=== PATIENT | female | born 1990 | race Caucasian/White ===

== ENCOUNTER 2024-04-05 12:18 | Emergency (ER) | payer OTHER, SELFPAY ==
[2024-04-05 12:31] VITALS: BP 133/70; PULSE 81; RESP 18; TEMP 36.7; O2SAT 99
--- NOTE | 2024-04-05 12:31 | ED.HA ---
HPI - Headache General Chief Complaint: Headache Stated Complaint: fatigue/migraine Time Seen by Provider: 04/05/24 12:32 Source: patient, RN notes reviewed and old records reviewed Mode of arrival: ambulatory Limitations: no limitations History of Present Illness HPI Narrative: patient presents with complaints of headache for 2 days. She does report that she gets frequent headaches, typically twice a month. She has not tract triggers. She denies any injury or trauma. That she takes ibuprofen, typically this gives her good relief. She states this is her typical headache except for the fact that it is lasting longer than normal. She does have some associated nausea, has not vomited. No fever, no rash. She further reports that she has had some fatigue for a couple of weeks. She just moved to the area, has not established care with a primary care provider yet. Related Data Home Medications Medication Instructions Recorded Confirmed cholecalciferol (vitamin D3) 10 10 mcg PO DAILY 04/05/24 04/05/24 mcg (400 unit) tablet escitalopram oxalate 10 mg tablet mg 04/05/24 levothyroxine 100 mcg tablet mcg 04/05/24 omega-3 fatty acids 1,000 mg PO DAILY 04/05/24 04/05/24 vits no.126-ferrous fum tablet 04/05/24 28 mg iron-folic acid 800 mcg tablet (Classic ) Allergies Allergy/AdvReac Type Severity Reaction Status Date / Time sulfamethoxazole Allergy Rash Verified 04/05/24 12:33 Review of Systems Review of Systems: All systems reviewed & are unremarkable except as noted in HPI and below Constitutional: Constitutional: Reports no additional constitutional complaints, Reports headache(s) and Reports lethargy ENT: Reports system reviewed and no additional complaints, except as documented Cardiovascular: Cardiovascular: Reports no additional cardiovascular complaints Respiratory: Respiratory: Reports no additional respiratory complaints Gastrointestinal: Gastrointestinal: Reports as per HPI, Reports no additional gastrointestinal complaints, Reports nausea and Denies vomiting Neurologic: Denies confusion, Denies dizziness and Reports headache(s) Psychiatric: Psychiatric: Reports anxiety PMFSH Comments At the time of my signature, I reviewed and agree with the nursing past medical, surgical, social, and family history. There is no relevant family history pertinent to the patient complaint. Exam Const: General: cooperative, no acute distress, alert and awake Orientation/consciousness: oriented to person, oriented to place and oriented to time HENMT: Head: normal to inspection Eyes: General: appearance normal, both eyes and all related structures Pupils: Equal, round and reactive pupils present Resp: Effort & Inspection: normal respiratory effort and able to speak in complete sentences Auscultation: clear to auscultation bilaterally, no crackles, no rales, no rhonchi and no wheezes Cardio: Palpation: normal PMI Rate: regular rate Rhythm: regular rhythm Heart sounds: S1 normal heart sound present and S2 normal heart sound present Neuro: General: oriented to person, oriented to place and oriented to time Cranial nerves: Yes CN's II-XII intact bilaterally Psych: Appearance: grossly normal Thought process: Normal thought process present Insight: Good insight present (Psych) Judgement: Good judgement present (Psych) Course Course Level of Care: Express Care Visit Vital Signs Vital signs: Vital Signs Temperature 98.1 F 04/05/24 12:31 Pulse Rate 81 04/05/24 12:31 Respiratory Rate 18 04/05/24 12:31 Blood Pressure 133/70 04/05/24 12:31 Pulse Oximetry 99 04/05/24 12:31 Oxygen Delivery Room Air 04/05/24 12:31 Temperature 98.1 F 04/05/24 12:34 Pulse Rate 81 04/05/24 12:34 Respiratory Rate 18 04/05/24 12:34 Blood Pressure 133/70 04/05/24 12:34 Pulse Oximetry 99 04/05/24 12:34 Oxygen Delivery Room Air 04/05/24 12:34 Reviewed MDM - Head
[2024-04-05 12:34] VITALS: BP 133/70; PULSE 81; RESP 18; TEMP 36.7; O2SAT 99
[2024-04-05] MEDS: ONDANSETRON HCL ODT 4 MG TABLET PO (12:49)
[2024-04-05] MEDS: KETOROLAC (*BKC) 60 MG/2 ML VIAL IM (12:49)
== END 2024-04-05 13:12 | disposition home or self-care (01) ==
PROVIDERS: Emergency Provider Nurse Practitioner Family
DX: R51.9 Headache, unspecified (principal); E03.9 Hypothyroidism, unspecified
CPT/HCPCS: 96372; 99203; A9270; G0463; J1885

== ENCOUNTER 2025-07-09 17:38 | Emergency (ER) | payer OTHER, SELFPAY ==
--- OUTSIDE RECORDS SUMMARY | 2025-07-09 09:42 | XMS_ITS ---
Author Organization [facility] Allergies Substance Reaction Status Bactrim Rash Active Medications Current Medications Medication Directions Start Date Discontinues Da te Synthroid 100 mcg tabs 1 tab orally daily 2023-12-24 triamcinolone acetonide topical 0.1% cream 1 application topically 2 times per day for 14 days 2024-02-23 2024-03-08 Nurtec ODT [address] tabs 1 tab orally ev ro other day 2025-03-04 prednisone 10 mg tabs 4 tabs PO QD for 5 days, then 2 tabs PO QD for 5 days, then 1 tab PO QD for 5 days 2025-03-04 Past Medications Medication Directions Start Date End Date benzonatate 200 mg caps 1 cap orally 3 t imes per day as needed for cough 2023-12-24 2025-03-04 amoxicillin-pot clavulanate 875-125 mg tabs 1 tab orally every 12 hours for 7 days 2023-12-24 2023-12-31 Lidocaine Viscous 2% soln 5 mL PO, swish and spit, q3h as needed for mouth/throat pain 2023-12-24 2025-03-04 doxycycline hyclate 100 mg tabs 1 tab or ally every 12 hours for 5 days 2024-02-23 2024-02-28 Problems Problem Status Assessment and P fredi Acute bronchitis Resolved May be turning bacterial giving symptoms and duration. reviewed otc management. augmentin 875 bid x 7 days. Benzonatate 200 mg tid as needed for cough. advised patient f/u with local pcp if no improvement. Red flag sxs reviewed Rash Active Patient responde d to check-in saying condition was better Wasp sting Active ASSESSMENT: Consistent with: Urticaria without evidence of anaphylaxis.- Brief summary: wasp sting 2 days, hives nowPLAN:Treatment and Guidance:- OTC second-generation H1 antihistamine- OTC H2 chris - Rx: Prednisone 10 mg tabs: 4 tabs PO qday x 5 days, 2 ttabs for 5 days and 1 tab for 5 days. Reviewed risks, benefits, and side effects.May add a first-generation antihistamine at bedtime as needed- Cool compresses and/or oatmeal baths- Avoid using hot water to bathe or wash hands- OTC anti-itch cream or lotion as needed for symptom reliefReferrals:- Referred to side stitching machine operator for further evaluation given <<< new-onset urticaria with unclear etiology / symptoms not well-controlled despite appropriate trial of treatment >>>Follow-up Timing and Contingencies:- Reviewed expected course and advised patient to follow-up if no improvement within 24-48 hours, symptoms worsen, new symptoms develop, or symptoms improve but do not resolve after 1 week of treatment.- Seek emergent medical care or contact 17/03 T as appropriate in the event of anaphylaxis symptoms, including but not limited to: shortness of breath; palpitations; fainting; lightheadedness; vomiting; or swelling of the lips, tongue, or throat. History of Procedures Order Codes Created Status No known procedures Results Tests Date Results Flag Units Reference Interval No Results Within Months MENTAL STATUS No information ENCOUNTERS Encounter Performer Location Encounter date Diagnosis Diagn osis Status Level 2 outpatient visit for evaluation and management of established patient with self-limited and/or minor problem, including problem-focused history and physical examination, and straightforward medical decision-making - typical time with patient and/or family 10 minutes or less Chapo Russo, NPInternal Medicine Note signed at: 2023-12-25 05:51:10 -0700 Acute bronchitis Active Level 2 outpatient visit for evaluation and management of established patient with self-limited and/or minor problem, including problem-focused history and physical examination, and straightforward medical decision-making - typical time with patient and/or family 10 minutes or less Yadi Louis, PAInternal Medicine Note signed at: 2024-02-23 10:46:09 -0700 Rash Active Level 2 outpatient visit for evaluation and management of established patient with self-limited and/or minor problem, including problem-focused history and physical examination, and straightforward medical decision-making - typical time with patient and/or family 10 minutes or less PADILLA Donnelly-CInternal Medicine Note signed at: 2025-03-04 08:25:42 -0700 Wasp sting Active Family History No Known Family History Social History Social History Observation Description Dates Observed Smoking Status Unknown if ever smoked Social Data OccupationMarital st atus: MarriedLiving situation: Lives with and two childrenOccupation: Software engineerTobacco: Tory: Rarely Immunizations Vaccine Date Status influenza (18+, Flublok, preservative-free) 08/2022 Completed SARS-CoV-2 mRNA 2136-0384 (Pfizer, 12+ yr) 05/25 Completed Plan of Treatment Health Screenings Date Goal Action Comments September 25, 2023 Cervical cancer screening February 26, 2025 Depression screening PHQ-2 Notes * Video Encounter - 12/25/2023 SUBJECTIVE: Chapo Russo KITCHENHAND-C 12/24/2023 7:44 PM EDT Patient name, and location confirmed Patient consents video CC: cough, sore throat HPI:?? - 33 y/o complaining of cough x 10 days now producing green sputum. She is also complaining of a green sputum production. She denies headache, dizziness, lightheadedness. Some mild sinus pressure. Nofever reported. Has tried apap and ibuprofen which provides some relief.?? ROS: - Pertinent findings per hpi OBJECTIVE: Pleasant, speaking in full, complete sentences. Breathing normally, unlabored. No acute distress. Answering all questions appropriately. Patient is coughing. No hoarseness.?? * Video Encounter - 02/23/2024 SUBJECTIVE: 02/23/2024 12:52 PM EDT PADILLA Garcia (SP: Dr. Allred ) Verified patient???s name, Patient's current location: [place] Obtained consent for treatment CC: rash SYMPTOMS:?? - Onset (date, sudden vs. gradual): 1 week ago - Course: stable - Location(s) at onset: left forearm - Location(s) currently: left arm - Description: started similar to poison Sowmya - Itching: yes - Pain: no - Warmth: yes - Drainage: yes ?? PERTINENT HISTORY: - Treatments already tried: OTC anti itch cream and claritin - Similar sxs in the past: yes - History of skin disorder(s), e.g. eczema, psoriasis: no - Exposure to toxic plants: yes - Recent or possible insect/tick bites: no PERTINENT ROS - Denies fever, chills, sweats, malaise, nausea, wheezing, shortness of breath, lip or throat swelling, vomiting, diarrhea, weakness, numbness, tingling, palpitations, SOB, joint pain or swelling. OBJECTIVE: Healthy appearing EOMI PINA No audible wheezing, stridor, or cough Speaking in full sentences NAD AO x 4, cooperative, normal mood and affect non visualized deformities, or bruises forearm rash with demarcation of the bandage, original rash consistent with localized infection vs poison sowmya - no streaks?? * Video Encounter - 03/04/2025 SUBJECTIVE: Ese Early PA-C Supervising Physician: Henrietta Brady MD Date: 59:20 AM CDT Confirmed full name and with patient Verbal consent obtained for tx Patient location: [facility] CC: Patient presents for allergic reaction to wasp SYMPTOMS:?? - Onset: night stung by wasp, swelling yesterday at sting site - Description (e.g., appearance, itchy, painful, draining, warm): ankle swelling into foot - Location: right ankle - Course: spreading - Associated symptoms: ??has had swelling near sting in past but not spreading away from localized area, sensitive to bites in general PERTINENT HISTORY: - Treatments already tried: ibuprofen, benadryl based topical, zyrtec-usual med for seasonal allergies - History of similar symptoms: no - Recent international travel: no - Recent URI or other illness: no - Exposure to someone with similar rash/symptoms: no - Relevant exposures (e.g., new medications or products, toxic plants, insects, travel-related): wasp sting - Relevant PMH (e.g., known skin disorder, skin cancer, recent trauma/surgery, illness, immunosuppression): no - or : no ?? no SOB or respiratory issues OBJECTIVE: Exam limited by use of video platform General NAD. A&O x 3 Chest Lungs no respiratory distress speaking in full sentences no retractions noted right ankle with sting site present and redness surrounding the area psych normal mood and appropriate affect
--- OUTSIDE RECORDS SUMMARY | 2025-07-09 17:41 | XMS_ITS | Encounter Summary ---
Author Organization [facility] Address [address] [place] [address] Care Team Providers Care Enlisted Aircrew/Aerial Observer/Gunner Name Role Phone Chapo Gomez Primary Care Provider [phone] Ashwin Barron DO Primary Care Provider [phone] Encounter Details Date Type Department Care Team (Late st Contact Info) Description 06/28/2019 Lab Requisition [facility] - Lab [address] [address] Cynthia Meneses APNP-LEARNING MANAGER [address] [place] [address] Encounter for supervision of other normal , first trimester Social History Tobacco Use Types Packs/Day Years Used Date Smoking Tobacco: Never Smokeless Tobacco: Never Comments Unknown Sex and Gender Information Value Date Recorded Sex Assigned at Female 01/16/2023 11:17 AM CDT Legal Sex Female 3:59 AM CDT Gender Identity Female 01/16/2023 11:17 AM CDT Sexual Orientation Straight 01/16/2023 11 :17 AM CDT documented as of this encounter Plan of Treatment Not on file documented as of this encounter Procedures Procedure Name Priority Date/Time Associated Diagnosis Comments TYPE + SCREEN PANEL Routine 06/28/2019 1 2:00 PM DROP WIRE HANGER Encounter for supervision of other normal , first trimester documented in this encounter Results * TYPE + SCREEN PANEL (06/28/2019 12:00 PM DROP WIRE HANGER) ABO AB 06/28/2019 4:16 PM DROP WIRE HANGER [facility] Rh Type Positive 06/28/2019 4:16 PM DROP WIRE HANGER [facility] Antibody Screen Negative 06/28/2019 4:16 PM DROP WIRE HANGER [facility] Blood Bank BLOOD SPECIMEN / Unknown 06/28/2019 12:00 PM DROP WIRE HANGER 06/28/2019 3:08 PM DROP WIRE HANGER us Cynthia HALE-LEARNING MANAGER LAB - BLOOD BANK ORDERABLE S Edited Result - Final [facility] [address] [place] [address], [facility] documented in this encounter Visit Diagnoses Diagnosis Encounter for supervision of other normal , first trimester (HCC) documented in this encounter Additional Health Concerns Infection Onset Date Last Indicated Resolved Time CDIFF Under Investigation 01/23/2024 01/24/2024 2:08 PM CDT C DIFF 01/23/2024 01/23/2024 documented as of this encounter Care Teams Enlisted Aircrew/Aerial Observer/Gunner Relationship Specialty Start Date End Date Chapo Gomez PCP - General 09/11/16 04/25/22 Ashwin Barron DO [address] [place] [address] PCP - General Family Medicine 04/26/22 documented as of this encounter
--- OUTSIDE RECORDS SUMMARY | 2025-07-09 17:41 | XMS_ITS | Clinical Summary ---
Author Organization [facility] Address [address] [place] [address] Care Team Providers Care Cash Management Officer Name Role Phone Raven Wills MD Primary Care Provider + Allergies Active Allergy Reactions Criticality Noted Date Comments Dust Mite Extract Runny Nose Low 03/21/2015 Gluten Meal GI Upset,Diarrhea,Headac he Medium 06/04/2016 Other reaction(s): CRAMPING Seasonal Eyes Water & Itch 11/16/2012 Pollen, dust mites, cat dander Sulfamethoxazole-Trim ethoprim Itching Medium 01/26/2021 Medications Calcium Carb-Cholecalcifero l 600-5 MG-MCG Tab Take 1 tablet by mouth daily. Active fish oil (OMEGA-3 FATTY ACID) 1000 MG Cap capsule Take 1 capsule (1,000 mg total) by mouth daily. Active ( VITAMINS) 28-0.8 MG tablet Take 1 capsule by mouth daily. Active buPROPion XL (WELLBUTRIN XL) 150 MG 24 hr tabletIndications:M ild episode of recurrent major depressive disorder Take 1 tablet (150 mg total) by mouth daily. 90 tablet 1 5 11/06/19 26 Active rimegepant (NURTEC) 75 MG disintegrating tabletIndications:M igraine without aura and without status migrainosus, not intractable Take 1 tablet (75 mg total) by mouth every other day. Max of 1 tablet (75 mg) in 24 hours. 45 tablet 3 5 Active escitalopram (LEXAPRO) 20 MG tabletIndications:M ild episode of recurrent major depressive disorder Take 1 tablet (20 mg total) by mouth daily. 90 tablet 3 Active desogestrel-ethinyl estradiol (APRI) 0.15-30 MG-MCG tabletIndications:P COS (polycystic ovarian syndrome) Take 1 tablet by mouth daily. 90 tablet 3 5 05/09/20 26 Active levothyroxine (SYNTHROID) 112 MCG tabletIndications:A cquired hypothyroidism Take 1 tablet (112 mcg total) by mouth daily. 90 tablet 3 5 05/19/20 26 Active Active Problems Problem Noted Date Diagnosed Date Morbid obesity 05/09/2025 Assessment & Plan (05/09/2025 10:21 AM CDT): Encouraged to continue efforts towards weight loss through diet and exercise. Emphasized importance of high-fiber foods and reducing calorie intake. ADHD 05/09/2025 Overview (05/09/2025): - Diagnosed in February [address] Julita Mcqueen at the [facility] - Exacerbation of symptoms over the past year or two - Difficulty with concentration at work leading to significant stress - Interested in exploring pharmacological options to aid in maintaining focus during meetings and other scheduled activities - Has not initiated any medication for ADHD Assessment & Plan (05/09/2025 10:21 AM CDT): -Requested psychology report on this diagnosis. - Discussed potential impact of stimulants on blood pressure. Considered non-stimulant options. - Prescribed Wellbutrin 150 mg for dual benefits for ADHD and depression. Dosage will be adjusted if no improvement after 2 months. Sleep disturbance 05/09/2025 Overview (05/09/2025): - Monitors sleep using an Apple watch, noting 8-9 hours per night but only achieves 10-30 minutes of deep sleep - Does not feel rested in the morning and occasionally naps during lunch - Does not snore unless ill, is a light sleeper, wakes up easily, rarely has trouble falling asleep - Does not experience sudden sleep episodes or restless legs syndrome - Maintains good sleep hygiene and is concerned that melatonin might cause grogginess - Has tried tart grady juice and other natural remedies Assessment & Plan (05/09/2025 10:21 AM CDT): Inadequate deep sleep despite sleeping 8-9 hours per night. - Discussed potential impact of Wellbutrin on sleep, advised to take it early in the morning. - Suggested melatonin (1-10 mg) to improve sleep quality. If insufficient, trazodone may be considered. PCOS (polycystic ovarian syndrome) 05/06/2024 Overview (09/24/2024): Menstrual cycles have been quite irregular. Often has 17-day cycles despite oral contraceptive. Assessment & Plan (09/24/2024 10:45 AM COMMERCIAL PAINTER): Abnormal uterine bleeding. Due to her migraine history and also advancing age, will trial progesterone only pill to see if this manages both migraines and keeps menstrual cycle more controlled. She will take it continuously. KIT (generalized anxiety disorder) 05/06/2024 Mild episode of recurrent major depressive disor brock 05/06/2024 Overview (05/09/2025): - Currently taking escitalopram (Lexapro) for anxiety, which has significantly reduced the frequency of panic attacks - Reports depression has been more impactful than anxiety - Experienced a six-month period of depression without initially recognizing it - Two months ago, had an allergic reaction to a bee sting and was prescribed prednisone, during which time depressive symptoms improved significantly - Considering trying bupropion (Wellbutrin) but has never taken it Assessment & Plan (05/09/2025 10:21 AM CDT): Not controlled. - Wellbutrin 150 mg daily aims to augment Lexapro therapy, improve mood, and increase energy levels. Dosage will be adjusted if no improvement after 2 months. Assessment & Plan (05/06/2024 11:51 AM CDT): Possibly contributing to fatigue. Trial higher dose of Lexapro. Migraine without aura 05/06/2024 Overview (05/09/2025): Migraines were about twice weekly. Light and sound sensitivity. Tried ibuprofen. Does cluster around menstrual cycle. Tried sumatriptan 50 mg taking an extra 50 mg 2 hours later without relief. Used sumatriptan from 05/06/24-07/12/24. Also tried rizatriptan from 07/15/2024 - 08/11/2024. It did not seem to work at all. More recently she has tried naratriptan from 08/11/2024 - 09/24/2024. Naratriptan cause some sleep paralysis which alarmed her. Nurtec has made substantial improvements in frequency and severity of symptoms. Assessment & Plan (05/09/2025 10:22 AM CDT): Controlled. Cont nurtec. Assessment & Plan (09/24/2024 10:44 AM COMMERCIAL PAINTER): Not controlled. Has failed 3 triptans. Will attempt Nurtec using it prophylactically. Assessment & Plan (07/12/2024 1:12 PM COMMERCIAL PAINTER): Chronic. Not controlled. Sumatriptan was ineffective. Will trial Nurtec used in a preventative fashion 75 mg every other day. Assessment & Plan (05/06/2024 11:51 AM CDT): Trial sumatriptan. Not controlled. Esophageal dysphagia 06/11/2021 Acquired hypothyroidism 10/19/2016 Overview (05/06/2024): Patient takes levothyroxine. She is noticing hair loss and some weight gain. Not certain if the dosing needs adjustment. Assessment & Plan (05/09/2025 10:22 AM CDT): Anticipate controlled. Check TSH w reflex. Continue levothyroxine. Assessment & Plan (05/06/2024 11:48 AM CDT): Possibly contributing to weight gain and hair loss. Hair loss could be attributed to telogen effluvium due to recent move. Will check TSH to confirm correct dosing. Continue levothyroxine. Encounters Date Type Department Care Team Description 05/19/2025 Results Follow-Up [facility] [place] [address] [place] [address] Raven Wills MD HEMOGLOBIN, GLYCOSYLATED, LIPID PANEL, TSH W/REFLEX 05/09/2025 9:30 AM CDT Office Visit [facility] [place] [address] [place] [address] Raven Wills MD Annual (Here for annual check. Also, was recently dx'd with ADHD. She doesn't manage this condition. ); Sleep Problem (She has been tracking her sleep patterns from her watch. Feeling tired. ) 05/09/2025 Travel from Last 3 Months Immunizations Immunization Administration Dates Next Due [id number] (Pediarix) 02/03/1995 Dtap (Acel-Immune) 02/03/1995, 0,03/04/1990,09/1989 Dtp (Generic) 04/29/1990,03/04/1990,1989 Hepatitis A (Havrix [address].U) 01/16/2010 Hepatitis B (Generic: Adult) 01/21/2001,09/02/19,07/08/2000 Hib (PedvaxHIB)3 Dose 03/31/1991 Influenza (Generic) 05/12/2024,,06/01/2021,11/2018,07/04/2015,07/12/2014 Influenza Adult (Generic) 06/08/2024,,06/13/2022,03/2021,06/19/2020,05/28/2019,05/08/20 18,05/26/2017,06/10/2016 MENINGOCOCCAL A C Y&W-135 oligosaccharide (MENVEO) 03/04/2008 MMR (MMRII) 02/03/1995,03/31/1991 MODERNA COVID-19 (12+), MRNA , LNP-S, PF, 50 MCG/0.5 ML (SPIKEVAX) 05/12/2024 PFIZER COVID-19 (12+) MRNA, LNP-S, PF, NANY-SUCROSE, 30 MCG/0.3 ML (COMIRNATY) 05/25/2023 Polio Opv (Generic) 02/03/1995,03/04/1990,1989 Tdap (Generic) 11/02/2019,07/30/2016,03/04/2008 Typhoid (Typhim ) 01/16/2010 Family History Medical History Relation Comments No Known Problems Brother Cancer Father CLL Diabetes Father Type 2 Heart Disease Father Has pacemaker No Known Problems Half-brother 1 No Known Problems Half-brother 2 None Mother Relation Status Comments Brother Alive Father Alive Half-brother 1 Alive Half-brother 2 Alive Mother Alive Son 1 Alive Son 2 Alive Social History Tobacco Use Types Packs/Day Years Used Date Smoking Tobacco: Never Passive Smoke Exposure: Past Smokeless Tobacco: Never Tobacco Cessation:Counseling Given: No Alcohol Use Standard Drinks/Week Comments Yes 0 (1 standard drink = 0.6 oz pur e alcohol) One drink per month PHQ-2 Answer Date Recorded Patient Health Questionnaire-2 Score 0 05/09/2025 Comments Unknown Sex and Gender Information Value Date Recorded Sex Assigned at Not on file Legal Sex Female 9:47 AM CDT Gender Identity Not on file Sexual Orientation Not on file Last Filed Vital Signs Vital Sign Reading Time Taken Comments Blood Pressure 136/80 05/09/2025 9:28 AM CDT Pulse 65 05/09/2025 9:28 AM CDT Temperature 36.8 C (98.2 F) 05/09/2025 9:28 AM CDT Respiratory Rate 17 07/12/2024 12:44 PM COMMERCIAL PAINTER Oxygen Saturation 99% 05/09/2025 9:28 AM CDT Inhaled Oxygen Concentration - - Weight 96 kg (211 lb 9.6 oz) 05/09/2025 9:28 AM CDT Height 162.6 cm (5' 4) 05/09/2025 9:28 AM CDT Body Mass Index 36.32 05/09/2025 9:28 AM CDT Plan of Treatment Health Maintenance Due Date Last Done Comments Hepatitis C 2007 HPV Vaccines (1 - 3-dose SCDM series) 2016 COVID-19 Vaccine ( season) 2025 05/12/2024, 05/25/2023, 05/12/2023 Influenza Adult (#1) 2025 06/08/2024, 05/12/2024, 05/25/2023, Additional history exists Cervical Cancer Screening Pap Smear (Age 30 to 64) Every 3 Years 01/16/2026 01/16/2023 Annual Physical 05/09/2026 05/09/2025, 05/06/2024 Cervical Cancer Screening Pap with HPV Testing (Age 30 to 64) Every 5 Years 01/17/2028 01/16/2023 Cervical Cancer Screening with HPV 01/17/2028 DTaP, Tdap and Td Vaccines (8 - Td or Tdap) 11/01/2029 11/02/2019, 07/30/2016, 03/04/2008, Additional history exists Hepatitis B Vaccines Completed 01/21/2001, 09/02/2000, 07/08/2000, Additional history exists Meningococcal Vaccine Completed 03/04/2008 Hepatitis A Vaccines Aged Out 01/16/2010 No long er eligible based on patient's age to complete this topic PHQ-2 (Physician [place]) Completed 05/09/2025 Meningococcal B Vaccine Aged Out No l onger eligible based on patient's age to complete this topic Pneumococcal Vaccine: Pediatrics (0 to 5 Years) and At-Risk Patients (6 to 49 Years) Aged Out No longer eligible based on patient's age to complete this topic RSV Immunizations Under 20 Months Aged Out No longer eligible based on patient's age to complete this topic Procedures Procedure Name Priority Date/Time Associated Diagnosis Comments TSH W/REFLEX Today 05/18/2025 10:23 AM CDT Acquired hypothyroidism LIPID PANEL Today 05/18/2025 10:23 AM CDT Routine general medical examination at a health care facility HEMOGLOBIN, GLYCOSYLATED Today 05/18/2025 10:23 AM CDT Routine general medical examination at a health care facility from Last 3 Months Results * (ABNORMAL) TSH W/REFLEX (05/18/2025 10:23 AM CDT) TSH 4.69(H) mIU/L [facility] Comment: Reference Range > or = 20 Years 0.40-4.50 Ranges First trimester 0.26-2.66 Second trimester 0.55-2.73 Third trimester 0.43-2.91 FREE T4 1.5 0.8 - 1.8 ng/dL [facility] [employer] [facility] 05/18/2025 10:2 3 AM CDT 05/18/2025 10:23 AM CDT Narrative [facility] [place] - 05/19/2025 6:25 AM CDT FASTING:YES FASTING: YES Resulting Agency Comment Performing Organization Information: Site ID: [id number] Name: [email or web address] Address: [address] [place] [address] Director: Liv Vyas MD us Raven Wills MD LABORATORY Final Re sult [facility] [address] [facility] [address] [place] [address], [place] * HEMOGLOBIN, GLYCOSYLATED (05/18/2025 10:23 AM CDT) HGB A1C 5.2 <5.7 % of total Hgb [place] Comment: For the purpose of screening for the presence of diabetes: <5.7% Consistent with the absence of diabetes 5.7-6.4% Consistent with increased risk for diabetes (prediabetes) > or =6.5% Consistent with diabetes This assay result is consistent with a decreased risk of diabetes. Currently, no consensus exists regarding use of hemoglobin A1c for diagnosis of diabetes in children. According to [place] Diabetes Association (ADA) guidelines, hemoglobin A1c <7.0% represents optimal control in non- diabetic patients. Different metrics may apply to specific patient populations. Standards of Medical Care in Diabetes(ADA). 05/18/2025 10:2 3 AM CDT 05/18/2025 10:23 AM CDT Narrative [facility] [place] - 05/19/2025 6:25 AM CDT FASTING:YES FASTING: YES Resulting Agency Comment Performing Organization Information: Site ID: [email or web address] [facility]: [email or web address] Address: [address] [address] Director: Liv Vyas us Raven Wills MD LABORATORY Final Re sult Performing Organization Address City/[facility]/ZIP Co de Phone Number [facility] [place] [facility] [place] [place] [address] [place] [address], * LIPID PANEL (05/18/2025 10:23 AM CDT) CHOLESTEROL 164 <200 mg/dL [facility] HDL 54 > OR = 50 mg/dL [facility] TRIGLYCERIDES 126 <150 mg/dL [facility] LDL (CALCULATED) 87 mg/dL (calc) [facility] Comment: Reference range: <100 Desirable range <100 mg/dL for primary prevention; <70 mg/dL for patients with CHD or diabetic patients with > or = 2 CHD risk factors. LDL-C is now calculated using the Benito calculation, which is a validated novel method providing better accuracy than the Friedewald equation in the estimation of LDL-C. Fernando SS et al. LIA. 2013;310(19): 2498-4798 (http://education.DynamicOps/faq/AOE629) CHOL/HDL RATIO 3.0 <5.0 (calc) [facility] NON HDL CHOLESTEROL 110 <130 mg/dL (calc) [facility] Comment: For patients with diabetes plus 1 major ASCVD risk factor, treating to a non-HDL-C goal of <100 mg/dL (LDL-C of <70 mg/dL) is considered a therapeutic option. 05/18/2025 10:2 3 AM CDT 05/18/2025 10:23 AM CDT Narrative [facility] [place] - 05/19/2025 6:25 AM CDT FASTING:YES FASTING: YES Resulting Agency Comment Performing Organization Information: Site ID: [id number] Name: [email or web address] Address: [address] [address] Director: Liv Vyas MD Raven Wills MD LABORATORY Final Re sult [facility] [address] [address], [place] [address], [place] from Last 3 Months Insurance [facility] Care Teams Cash Management Officer Relationship Specialty Start Date End Date Raven Wills MD [address] [place], [place] [address] [address] PCP - General FAMILY PRACTICE 05/06/24
--- OUTSIDE RECORDS SUMMARY | 2025-07-09 17:41 | XMS_ITS | Encounter Summary ---
Author Organization [facility] Address [address] [place] [address] Care Team Providers Care Poultry Cutter Name Role Phone Raven Wills MD Primary Care Provider + Encounter Details Date Type Department Care Team (Late st Contact Info) Description 05/19/2025 Results Follow-Up [facility] [place] [address] [place] [phone] Raven Wills MD [address] [place] [phone] HEMOGLOBIN, GLYCOSYLATED, LIPID PANEL, TSH W/REFLEX Social History Tobacco Use Types Packs/Day Years Used Date Smoking Tobacco: Never Passive Smoke Exposure: Past Smokeless Tobacco: Never Alcohol Use Standard Drinks/Week Comments Yes 0 (1 standard drink = 0.6 oz pur e alcohol) One drink per month PHQ-2 Answer Date Recorded Patient Health Questionnaire-2 Score 0 05/09/2025 Comments Unknown Sex and Gender Information Value Date Recorded Sex Assigned at Not on file Legal Sex Female 9:47 AM CDT Gender Identity Not on file Sexual Orientation Not on file documented as of this encounter Plan of Treatment Scheduled Orders Name Type Priority Associated Diagnoses Orde r Schedule TSH W/REFLEX Lab Today Acquired hypothyroidism Expected: 06/18/2025 (Approximate), Expires: 05/19/2026 documented as of this encounter Visit Diagnoses Diagnosis Acquired hypothyroidism Unspecified hypothyroidism documented in this encounter Additional Health Concerns Assessment Noted Time PHQ-9 Depression Total Score: 8 05/09/20 9:34 AM CDT documented as of this encounter Care Teams Poultry Cutter Relationship Specialty Start Date End Date Raven Wills MD [address] [facility] [address] [place] [id number] PCP - General FAMILY PRACTICE 05/06/24 documented as of this encounter
--- OUTSIDE RECORDS SUMMARY | 2025-07-09 17:42 | XMS_ITS | Clinical Summary ---
Author Organization [facility] Address [address] [place] [address] Care Team Providers Care Security Specialist Name Role Phone Ashwin Barron Primary Care Provider [phone] Source Comments [facility],non-owned Affiliates and Associated Physician Practices is amultiple site organization consisting of ambulatory clinics and hospital sitesin [place], [place], [place] and [place]. This disclosure is being madepursuant to the Care Everywhere program and may not contain all information available regarding this patient. Last updated 18.[facility] Allergies Active Allergy Reactions Criticality Noted Date Comments Dust Mite Extract Rhinitis Low 03/21/2015 Gluten Meal GI Discomfort,Diarrhea ,Headache Medium 06/04/2016 Other reaction(s): CRAMPING Seasonal Eye Itching 11/16/2012 Pollen, dust mites, cat dander Sulfamethoxazole W-Trimethoprim Rash Medium 01/26/2021 Medications * Be aware that medications may not be up to date on this document. Alwaysverify current medications with the patient. Vit-Fe Fumarate-FA ( PLUS PO) Take 1 Tab by mouth once daily 7 Active Probiotic Product (PROBIOTIC DAILY PO) Take 1 tablet by mouth once daily Active Calcium Carbonate+Vitamin D 600-200 MG-UNIT TABS Take 1 tablet by mouth once daily Active Delco-3 Fatty Acids (fish oil) 1000 MG capsule Take 1 (one) capsule by mouth once daily Active drospirenone-ethiny l estradiol (Leigha) 3-0.02 MG tablet Take 1 (one) tablet by mouth once daily 84 tablet 3 4 Active escitalopram (Lexapro) 10 MG tablet Take 1 (one) tablet by mouth once daily 90 tablet 1 4 Active levothyroxine (Synthroid) 100 MCG tabletIndications:A cquired hypothyroidism TAKE 1 TABLET BY MOUTH DAILY 90 tablet 4 Active Active Problems Problem Noted Date Diagnosed Date Esophageal dysphagia 06/11/2021 Overview (04/26/2022): GI 2020: Long standing intermittent solid dysphagia. Her workup has been underwhelming with no hypercontractile or consistent hypocontractile condition identified. We discussed how reflux can contribute to inefficient motility of the esophagus, so being mindful of reflux would be warranted; though, no signs of esophagitis or experiencing heartburn so will not plan for PPI at this time. She is reassured with all of the normal testing. She will continue to follow careful swallowing technique and antireflux measures. Follow up PRN Hypothyroidism 10/19/2016 Encounter for supervision of normal first in third trimester 10/17/2016 state, incidental 10/17/2016 Overview (04/17/2018): Overview: Providers Residents: Rusty Gomez Faculty: Nikolay Call for admission: no Dating VANESSA: 10/12/16 Based on: LMP & 1st Trim. US Problems: Hypothyroidism Routine Labs/Studies: Blood Type/Ab screen: AB+, Neg Ab GBS: Positive, no allergies Hep B: neg Rubella: Imm HIV: neg RPR: Neg GC/CT: Not tested Pap: Deferred, will need Pap post GTT: Normal U/S #1: 11w: Single intrauterine consistent with LMP. Cardiac activity was identified, NT measurement is 1.3 mm U/S #2: 20w: Normal anatomy, suboptimal visualization of cardiac anatomy U/S #3: 22w: Normal cardiac anatomy Screeninst Trimester Screen: WNL, normal NT AFP or Quad Screen: Vaccines Influenza: TDaP (28-36wks): 07/30/16 Labor/ Plans Partner Support Person: [facility]: [place] Plans: Discussed epidural, numorphan; would prefer no analgesia but is open to other options if needed. Reviewed monitoring, AROM, labor process. Sex of Fetus: Boy Baby Doctor: Anna DE LA CRUZ : Yes Circumcision: No Contraception: Condoms, Immunizations Immunization Administration Dates Next Due INFLUENZA VACCINE, TRIV. (AF LURIA, FLUZONE TRIVALENT; 6MO+) (IIV3) 07/04/2015,07/12/2014 COVID MODERNA 12+ yr 50mcg/0.5mL 05/12/2023 COVID PFIZER 12+YR 30MCG/0.3mL 05/25/2023 DTAP/HEP B/IPV 02/03/1995 DTP, HISTORIC VACCINE 04/29/1990,03/04/1990,09/1989 DTaP VACCINE IM (6wk-6yrs) 02/03/1995 FLU VACCINE QUAD IIV4 SPLIT 0.25 ML IM 9,05/08/2018,05/26/2017 FLU, HISTORIC VACCINE 06/01/2021 HEP A VACCINE, ADULT 01/16/2010 HEP B VACCINE, ADULT 3 DOSE 01/21/2001, 1,07/08/2000 HIB-HAEMOPHILUS INFLUENZAE B CONJUGATE VACCINE 03/31/1991 INFLUENZA VACCINE 05/28/2019 INFLUENZA VACCINE, CELL CULT URE, QUADR. (FLUCELVAX QUADRIVALENT; 6MO+), 0.5 ML (CCIIV4) 06/01/2021 INFLUENZA VACCINE, QUADR. (F LUZONE; FLULAVAL; FLUARIX; AFLURIA QUADRIVALENT; 6MO+), 0.5 ML (IIV4) 05/12/2023,06/13/2022,06/19/2020,06/10 MENINGOCOCCAL ACWY MENVEO 03/04/2008 MMR VACCINE 02/03/1995,03/31/1991 POLIO OPV 02/03/1995,03/04/1990,1989 TDAP (7yrs+) 11/02/2019,03/04/2008 TDAP, HISTORIC VACCINE 07/30/2016 TYPHOID IM 01/16/2010 iNFLUENZA VACCINE, RECOM-ARDON, QUADR. (FLUBLOCK QUADRIVALENT; 18Y+) (RIV4) 05/25/2023 Family History Medical History Relation Name Comments Crohn's Disease Father Diabetes - Type 2 Father Leukemia Father CLL Other Mother Diverticulitis Relation Name Status Comments Father Alive Mother Alive Social History Tobacco Use Types Packs/Day Years Used Date Smoking Tobacco: Never Smokeless Tobacco: Never Alcohol Use Standard Drinks/Week Comments Not Currently 0 (1 standard drink = 0.6 oz pur e alcohol) PHQ-2 Answer Date Recorded Patient Health Questionnaire-2 Score 2 01/09/2024 Comments No Sex and Gender Information Value Date Recorded Sex Assigned at Female 01/16/2023 11:17 AM CDT Legal Sex Female 3:59 AM CDT Gender Identity Female 01/16/2023 11:17 AM CDT Sexual Orientation Straight 01/16/2023 11 :17 AM CDT Last Filed Vital Signs Vital Sign Reading Time Taken Comments Blood Pressure 112/66 01/23/2024 1:18 PM CDT Pulse 77 01/23/2024 1:18 PM CDT Temperature 36.8 C (98.2 F) 01/23/2024 1:18 PM CDT Respiratory Rate 16 10/18/2016 6:10 PM [employer] Oxygen Saturation 96% 01/23/2024 1:18 PM CDT Inhaled Oxygen Concentration - - Weight 89.5 kg (197 lb 6.4 oz) 01/23/2024 1:18 P M CDT Height 157.5 cm (5' 2) 01/23/2024 1:18 PM CDT Body Mass Index 36.1 01/23/2024 1:18 PM CDT Plan of Treatment Health Maintenance Due Date Last Done Comments HIV SCREENING 2004 HEPATITIS C SCREENING 10/10/2007 HPV VACCINE (1 - 3-dose SCDM series) 2016 DEPRESSION SCREENING 08/25/2024 01/09/2024, 06/19/2023, 04/26/2022 COVID-19 VACCINE ( season) 2025 05/25/2023, 05/12/2023, 06/13/2022, Additional history exists INFLUENZA VACCINE (#1) 2025 , 05/12/2023, 06/13/2022, Additional history exists PAP SMEAR 01/16/2026 01/16/2023 Cervical Cancer Screening 01/17/2028 PAP with HPV 01/17/2028 01/16/2023 DTAP/TDAP/TD VACCINES (8 - Td or Tdap) 11/01/2029 11/02/2019, 07/30/2016, 03/04/2008, Additional history exists ZOSTER VACCINE (1 of 2) 2039 HIB VACCINE Completed 03/31/1991 HEPATITIS B VACCINE Completed 01/21/2001, 09/02/2000, 07/08/2000, Additional history exists MENINGOCOCCAL GROUPS A/C/Y/W VACCINE Completed 03/04/2008 MENINGOCOCCAL (Group B) VACCINE SHARED DECISION-MAKING Aged Out No longer eligible based on patient's age to complete this topic PNEUMOCOCCAL VACCINE Aged Out No long er eligible based on patient's age to complete this topic Procedures Procedure Name Priority Date/Time Associated Diagnosis Comments PAP THINPREP (WI) Routine 01/16/2023 11: 46 AM CDT Screening for cervical cancer HPV PANEL Routine 01/16/2023 11:46 AM CDT Screening for cervical cancer from Last 3 Months or Most Recently Relevant to Health Maintenance Results * PAP THINPREP ([place]) (01/16/2023 11:46 AM CDT) CASE REPORT Gynecologic Cytology Report Case: [id number] Authorizing Provider: Ashwin Barron DO Collected: 01/16/2023 11:46 AM Ordering [facility] Received: 01/16/2023 11:46 AM [facility] First Screen: Santosh Valdez CT(ASCP) Specimen: THIN PREP PAP VIAL ([place]), Cervix/Endocervix 01/24/2023 1:26 PM CDT [facility] LMP 12/27/2022 01/24/2023 1:26 PM CDT [facility] Clinical History None Applicable 09/2022 1:26 PM CDT [facility] Specimen Adequacy Satisfactory for evaluation. Transformation zone component is present. 01/24/2023 1:26 PM CDT [facility] Categorization Negative for intraepithelial lesion or malignancy. 01/24/2023 1:26 PM CDT [facility] Interpretation Negative for intraepithelial lesion or malignancy. 01/24/2023 1:26 PM CDT [facility] at 1326 CDT Recommendations Clinical correlation recommended, with follow-up as directed by current ASCCP risk-based management consensus guidelines. 01/24/2023 1:26 PM CDT [facility] Footnote Cervical cytology is a screening test with limited sensitivity. It is not a diagnostic procedure and should not be used as the sole means to detect cervical cancer, especially in patients with symptoms or an abnormal cervix. Regular screening is critical for cancer prevention. 01/24/2023 1:26 PM CDT [facility] EMBEDDED IMAGES 1:26 PM CDT [facility] Pathology/Cytolo gy MISCELLANEOUS SAMPLES / Unknown Collection / Unknown 01/16/2023 11:46 AM CDT 01/16/2023 11:46 AM CDT Ashwin Barron DO LAB - BODY FLUID ORDERABLES Fin al Result [facility] [address] [place] [address] * HPV PANEL (01/16/2023 11:46 AM CDT) High Risk HPV 16 NEGATIVE NEGATIVE 01/24/2023 3:20 PM CDT [facility] High Risk HPV 18 NEGATIVE NEGATIVE 01/24/2023 3:20 PM CDT [facility] High Risk HPV Other NEGATIVE NEGATIVE 01/24/2023 3:20 PM CDT [facility] Comment:HPV Comment: This te st amplifies DNA of HPV16, HPV18 and twelve other high risk types (31, 33, 35, 39, 45, 51, 52, 56, 58,59, 66, 68) without differentiation. Other MISCELLANEOUS SAMPLES / Unknown Collection / Unknown 01/16/2023 11:46 AM CDT 01/16/2023 11:46 AM CDT Narrative [facility] - 01/24/2023 3:20 PM CDT A negative result does not preclude the presence of HPV infection because results depend on adequate specimen collection, absence of inhibitors and sufficient DNA to be detected. Results should be interpreted in conjunction with other available laboratory and clinical data. us Ashwin Barron DO LAB - MICROBIOLOGY ORDERABLES F inal Result [facility] [address] from Last 3 Months or Most Recently Relevant to Health Maintenance Additional Health Concerns Infection Onset Date Last Indicated C DIFF 01/23/2024 01/23/[address] [place] [id number] Care Teams Security Specialist Relationship Specialty Start Date End Date Ashwin Barron DO [address] [id number] PCP - General Family Medicine 04/26/22
--- OUTSIDE RECORDS SUMMARY | 2025-07-09 17:42 | XMS_ITS | Data Portability ---
Author Organization [facility], [id number] Address [address] [place] [id number] Assessment Encounter Date Assessment Date Assessment LastModified by Organization Details LastModified Time 04/22/2025 04/22/2025 agrees to pelvic US and also endometritis treatment to start. [email or web address] Not available 04/22/2025 11:20:26 Plan of Treatment Reminders Order Date Submit Date Provider Last Modified By Organization Details Last Modified Time Details Appointments None recorded. Lab None recorded. Referral None recorded. Procedures None recorded. Surgeries None recorded. Imaging US, pelvis 2024 025 [email or web address] Not available 12:42:51 US, transvagina l 2024 025 [email or web address] Not available 12:42:51 Medication Orders doxycycline hyclate 100 mg tablet 2024 025 [employer] #[id number], [address], [place], [id number], 5 05:01:10 metronidazo le 500 mg tablet 2024 025 [employer] #[id number], [address], [place], [phone], 5 05:01:10 Patient TargetsNo targets recorded. Patient InstructionsNo instructions recorded. Reason for Referral None Reported. Results Created Date Observation Date Name Description Value Unit Range Abnormal Flag Note LastModifiedBy Organization Detail LastModifiedTime 04/29/2004/29/2025 ultra sound image s RAD bgruddy [employer] [id number] 04/29/2025 14:04:31 05/03/2004/29/2025 US, trans vagin al No observ ation record ed. [email or web address] Not Available 04/2025 12:59:08 Result Notes None recorded. Problems Name Problem SNOMED Code Status Onset Date Resolution Date Notes Provider Name and Address Organization Details Recorded Time Acquired hypothyro idism 234379628 Active ANIYA CRUZ MD [address], [place], [address], [facility] 5 12:30:01 Esophagea l dysphagia 10078851 Active ANIYA CRUZ MD [address], [place], [address], [facility] 5 12:30:26 Generaliz ed anxiety disorder 60016931 Active ANIYA CRUZ MD [address], [place], [address], [facility] 5 12:30:36 Migraine without aura, not refractor y 708036007 Active trial of 3 triptans in past ANIYA CRUZ MD [address], [place], [address], [facility] 5 12:31:24 Mild depressio n 978095554 Active lexapro use ANIYA CRUZ MD [address], [place], [address], [facility] 5 12:31:52 Polycysti c ovary syndrome 810388076 Active 2022 on this date w NORMAL ovaries, 7.5cm ut, 10mm ems, and 2.3cm anterior FIBROID. ANIYA CRUZ MD [address], [place], [address], [facility] 5 11:58:41 Abnormal uterine bleeding 322482332151 00 Active 2024 ANIYA CRUZ MD [address] [facility] [address], [place], [address], [facility] 5 11:19:33 Endometri tis 16148321 Active 2024 ANIYA CRUZ MD [address] [facility] [address], [place], [address], [facility] 5 11:19:39 Problem Notes None recorded. Procedures Surgical History Date Name Laterality Status Provider Name and Address Organization Details Recorded Time 5 Date of Last Mammogram completed [facility] 04/22/2025 10:52:58 3 Date of Last Pap Smear completed ANIYA CRUZ MD [address] [facility] [address], [place], [address], [facility] 04/29/2025 11:57:25 Imaging Results None recorded. Procedure Notes None recorded. Medical Equipment None Reported. Allergies Allergen ID Allergen Name Allergen Category Reaction Reaction Severity Criticality Documentation Date Start Date Code Code System Note Provider Name and Address Organization Details Recorded Time 896990 Substance with sulfonami de structure and antibacte rial mechanism of action (substanc e) medicatio n Not available Not available Not available 04/22/2025 87815 8003 SNOMED Mercedes Joey(TE RM) null, [facility] 5 10:34:39 Medications Name Sig Start Date Stop Date Status Note LastModified by Organization Details LastModified Time rizatriptan 10 mg tablet TAKE ONE TABLET BY MOUTH NEEDED FOR MIGRAINE. MAY REPEAT IN 2 HOURS IF NEEDED X 1 DOSE. active Not Available Not Available No t Available sumatriptan 50 mg tablet active Not Available Not Available Not Available metronidazo le 500 mg tablet Take 1 tablet every 8 hours by oral route for 14 days. 05/13 completed Not Available Not Available Not Available levothyroxi ne 100 mcg tablet active Not Available Not Available Not Available norethindro ne (contracept steve) 0.35 mg tablet TAKE 1 TABLET BY MOUTH DAILY 04/22 completed Not Available Not Available Not Available naratriptan 2.5 mg tablet active Not Available Not Available Not Available doxycycline hyclate 100 mg tablet Take 1 tablet twice a day by oral route for 14 days. 05/13 completed Not Available Not Available Not Available escitalopra m 20 mg tablet TAKE 1 TABLET BY MOUTH DAILY active Not Available Not Available No t Available drospirenon e 3 mg-ethinyl estradiol 0.02 mg tablet TAKE 1 TABLET BY MOUTH DAILY 04/22 completed Not Available Not Available Not Available Isibloom 0.15 mg-0.03 mg tablet TAKE 1 TABLET BY MOUTH DAILY active Not Available Not Available No t Available Nurtec ODT 75 mg disintegrat ing tablet DISSOLVE ONE TABLET BY MOUTH EVERY OTHER DAY. MAXIMUM DAILY DOSE IS 1 TABLET. active Not Available Not Available No t Available Vitals Date Recorded Body weight Body mass index (BMI) Body height Systolic And Diastolic Provider Name and Address Organization Details Last Updated DateTime 04/22/2025 27497.68 g 36 kg/m2 162.56 cm 122/70 mm[Hg] [facility] 04/22/2025 10:57:16 Social History Question Answer Notes LastModified by [employer] Details LastModified Time Tobacco Smoking Status Never Smoker Mercedes Cook(TERM) [facility], [facility] 04/22/2025 10:35:02 Do You Have An Advance Directive? No Information not available 04/22/2025 If You Are , What Was Your Level Of Alcohol Consumption Prior To ? None Information not available 04/22/2025 How Many Years Have You Consumed Alcohol? 14 Information not available 04/22/2025 What Is Your Level Of Caffeine Consumption? Moderate Information not available 04/22/2025 What Type Of Diet Are You Following? GLUTENFREE Information not available 04/22/2025 Sex: Female Functional Status Question Answer Note LastModified by [employer] Details LastModified Time What is your level of alcohol consumption? Occasional Information not available 04/22/2025 Are you currently employed? Yes Information not available 04/22/2025 Mental Status None recorded. Family History Relationship Description Onset Age of this Age Resolved Age Notes LastModified by Organization Details LastModified Time Mother Disorder of thyroid gland [email or web address] Not available 2024 10:34:43 Mother Hypothyroidi sm tketten Not available 2024 10:34:43 Maternal Grandmother Disorder of thyroid gland tketten Not available 2024 10:34:43 Maternal Grandmother Osteoporosis [email or web address] Not available 0 04/22/2025 10:34:43 Father Heart disease tketten Not available 2024 10:34:43 Medical History Condition Response Psych- Anxiety Disorder Y Psych-Other Y Endocrinology- Hypothyroidism Y Psych- Depression Y Gynecological History Statement/Question Response History of PCOS Y History of Fibroids N Date of Last Mammogram 04/22/2025 Flow Moderate Date of LMP 03/12/2025 History of Infertility N History of Cervical Dysplasia N History of Vulvar Dysplasia N Current Control Method: Combined O ral Contraceptive Pills Duration of Flow (days) 5 Cologuard Testing N History of Recurrent Ovarian Cysts Y Age at first intercourse 16 History of Endometriosis N Frequency of Cycle (Q days) 27 Sexually Active? Y History of Abnormal PAP N History of Dysmenorrhea N Date of Last Pap Smear 01/16/2023 Sexual Problems? Y History of Sexually Transmitted Infectio n N Date of Last Cholesterol Screening 05/06 Obstetrics History GPAL:G 0 P 0 0 0 0 Immunizations Vaccine Type Date Status Note Provider Nam e and Address Organization Details Recorded Time COVID-19, mRNA, LNP-S, PF, 50 mcg/0.5 mL 05/12/2024 completed Not Available [employer] 10:34:30 Influenza, split virus, trivalent, PF 05/12/2024 completed Not Available [employer] 2024 10:34:30 Past Encounters Encounter ID Performer Location Encounter Start Date Encounter Closed Date Diagnosis/Indication Diagnosis SNOMED-CT Code Diagnosis ICD10 Code Diagnosis IMO Codes Diagnosis Note [id number] ANIYA CRUZ MD [id number] [facility] [address] [place] [address] 04/22/2025 10:33:28 04/22/2025 11:26:21 Generalized anxiety disorder 07543889 F41.1 270706 Mild depression 60055864 3 F32.A 443217 Acquired hypothyroidism 118187415 E03.9 11406 Esophageal dysphagia 408 79464 R13.19 8211 Migraine w ithout aura, not refractory 618620192 G43.448 9207722 Abnormal u terine bleeding 3349870099 9100 N93.9 021371 Endometritis 62053054 N7 1.9 [id number] ANIYA CRUZ MD [id number] [facility] [address] [place] [address] 04/29/2025 12:04:28 04/29/2025 12:42:51 Abnormal uterine bleeding 7466569459 9100 N93.9 02452839 Health Concerns Section Related Observation LastModified by Organization Detai ls LastModified Time None Recorded Concern Status LastModified by Organization Details LastModified Time None Recorded Advance Directives Directive N: Payers Insurance Date Sequence Insurance Name Policy Number Policy Lemus Covered Member ID Lemus Member ID Guarantor Name 05/05/2025 1 [facility] [id number] Arianna Mistry [id number] Arianna Mistry Notes Date Note Type Note Provider Name and Address Organization Details Recorded Time 04/22/2025 text/html 18mos ago, regular periods became heavy. in [place], PCP did pap and std screen neg, states spouse is only partner, but sometimes post coital bleeding. states he did std screen d/t friable cervix. was on jean-pierre, but then had period every 2 weeks. switched to norethindrone pop, but then headaches worse. 3mos ago changed to isibloom. LMP march 12x 4w, then spotting ever since. minimal pain[facility] PCP did TVUS in [place] 18mos ago, dx pcos, but no blood testing done. w regular menses, not sure this is PCOS. states as teen had some ov cysts diagnosed by abd US, symptoms improved then w thyroid med. agrees to [facility] for pap/std/US (see tickler) and prefers US soon and abx now ANIYA CRUZ MD [address] [facility] [address], [place], [address], [facility] 04/22/2025 11:24:36 OBGyn Episode No OBEpisode recorded.
--- OUTSIDE RECORDS SUMMARY | 2025-07-09 17:42 | XMS_ITS | Encounter Summary ---
Author Organization [facility] Address [address] [place] [id number] Care Team Providers Care Personnel Representative Name Role Phone Raven Wills MD Primary Care Provider + Encounter Details Date Type Department Care Team (Late st Contact Info) Description 10/07/2024 [employer] Message Enc [facility] Family Medicine - [place] [address] [place] [phone] Raven Wills MD [address] [place] [phone] [facility] Social History Tobacco Use Types Packs/Day Years Used Date Smoking Tobacco: Never Passive Smoke Exposure: Past Smokeless Tobacco: Never Alcohol Use Standard Drinks/Week Comments Yes 0 (1 standard drink = 0.6 oz pur e alcohol) One drink per month PHQ-2 Answer Date Recorded Patient Health Questionnaire-2 Score 1 09/24/2024 Comments Unknown Sex and Gender Information Value Date Recorded Sex Assigned at Not on file Legal Sex Female 9:47 AM CDT Gender Identity Not on file Sexual Orientation Not on file documented as of this encounter Progress Notes * Radha Feldman MA - 10/15/2024 12:00 PM CST I called [employer] today and they stated its still under clinical review. O RECORDER MECHANIC * Marzena Hart MA - 2024 9:53 AM CST We are awaiting the prior auth decision. Sometimes it takes 3-5 days for answer. Hopefully this afternoon we may have something. O RECORDER MECHANIC * Radha Feldman MA - 10/11/2024 4:34 PM CST PA submitted 10/11/24 [employer] RECORDER MECHANIC documented in this encounter Plan of Treatment Not on file documented as of this encounter Visit Diagnoses Not on filedocumented in this encounter Additional Health Concerns Assessment Noted Time PHQ-9 Depression Total Score: 5 09/24/19 10:17 AM VIDEO RECORDER MECHANIC documented as of this encounter Care Teams Personnel Representative Relationship Specialty Start Date End Date Raven Wills MD [id number] [id number] PCP - General FAMILY PRACTICE 05/06/24 documented as of this encounter
--- NOTE | 2025-07-09 17:43 | ED.NAVMDI ---
HPI - Nausea/Vomiting/Diarrhea General Chief complaint: Nausea/Vomiting/Diarrhea Stated complaint: Nausea/Vomiting Time Seen by Provider: 07/09/25 17:44 Source: patient Mode of arrival: ambulatory Limitations: no limitations History of Present Illness HPI Narrative: Arianna is a 34 year old female patient presenting to the clinic today with c/o nausea and vomiting x 5 days. States she has vomited 3 times today. No URI symptoms, fever, abdomen pain, or diarrhea. No UTI symptoms. Last BM yesterday. History of PCOS- no concern for or STI. Last 05/21/25- on OCP. Related Data Home Medications ?Medication ?Instructions ?Recorded ?Confirmed ?Last Taken ?Type cholecalciferol (vitamin D3) 10 10 mcg PO DAILY 04/05/24 04/05/24 Unknown History mcg (400 unit) tablet escitalopram oxalate 10 mg tablet mg 04/05/24 Unknown History levothyroxine 100 mcg tablet mcg 04/05/24 Unknown History omega-3 fatty acids 1,000 mg PO DAILY 04/05/24 04/05/24 Unknown History vits no.126-ferrous fum tablet 04/05/24 Unknown History 28 mg iron-folic acid 800 mcg tablet (Classic ) Allergies Allergy/AdvReac Type Severity Reaction Status Date / Time sulfamethoxazole Allergy Mild Rash Verified 07/09/25 17:43 Review of Systems Review of Systems: Pertinent positives per HPI. Patient denies any fever, chills, rash, headache, visual changes, dizziness, cough, runny nose, sore throat, shortness of breath, chest pain, palpitations, diarrhea, constipation, abdominal pain, or any urinary issues. PMFSH Comments At the time of my signature, I reviewed and agree with the nursing past medical, surgical, social, and family history. There is no relevant family history pertinent to the patient complaint. Exam Narrative: General: Well-developed, obese, in no apparent distress. Head: Normocephalic, atraumatic. Cardio: Regular rate and rhythm, s1 and s2 normal, no murmur appreciated. Resp: Clear to auscultation bilaterally, no rhonchi, rales, wheezing or rubs. Abdomen: Soft, pliable, bowel sounds present in all quadrants, non-tender to palpation, no organomegly, no CVAT tenderness. Course Course Emergency Course: Portions of this record may have been created with voice recognition software. Level of Care: Express Care Visit Vital Signs Vital signs: Vital Signs Temperature 36.4 C L 07/09/25 17:45 Pulse Rate 96 07/09/25 17:45 Respiratory Rate 20 07/09/25 17:45 Blood Pressure 120/62 07/09/25 17:45 Pulse Oximetry 99 07/09/25 17:45 Oxygen Delivery Room Air 07/09/25 17:45 Temperature 36.4 C L 07/09/25 17:45 Pulse Rate 96 07/09/25 17:45 Respiratory Rate 20 07/09/25 17:45 Blood Pressure 120/62 07/09/25 17:45 Pulse Oximetry 99 07/09/25 17:45 Oxygen Delivery Room Air 07/09/25 17:45 Vital signs reviewed MDM - Nausea/Vomiting/Diarrhea MDM Narrative Medical decision making narrative: At the time of visit patient is resting comfortably on the exam table. Patient appears to be nontoxic. C/o nausea and vomiting x 5 days. States she has vomited 3 times today. No URI symptoms, fever, abdomen pain, or diarrhea. No UTI symptoms. Last BM yesterday. History of PCOS- no concern for or STI. Last 05/21/25- on OCP. On exam patient has soft, pliable, nondistended abdomen, no organomegaly, no CVAT tenderness, bowel sounds present all 4 quadrants, bilateral TMs intact and clear, no nasal drainage, oropharynx normal, lung sounds are clear, heart rates regular rate rhythm. Patient is reporting some nausea in the clinic today. Urine dip and bedside ordered. Ondansetron 8 mg ODT ordered. Labs: Urinalysis shows trace of blood otherwise no sign of infection, protein, or nitrates. Bedside test was negative. Medications: Ondansetron 8 mg ODT given in the clinic today. Plan: I suspect patient has acute nausea vomiting. Prescription for Zofran was sent to the pharmacy. Supportive measures were discussed with the patient and they voiced understanding discharge instructions and agrees to treatment plan. Return precautions reviewed Differential Diagnosis Differential diagnosis: Likely food poisoning, gastroenteritis, drug-induced nausea and vomiting, dehydration and other (, viral syndrome) Lab Data Labs: Lab Results 07/09/25 07/09/25 Range/Units 18:07 18:18 POC Urine Color Yellow POC Urine Clarity Clear POC Urine pH 6.5 POC Ur Specif [place] 1.015 POC Urine Protein Negative (Negative) POC Ur Glucose (UA) Negative (Negative) POC Urine Ketones Negative (Negative) POC Urine Blood Trace (Negative) POC Urine Nitrite Negative (Negative) POC Urine Bilirubin Negative (Negative) POC Urine Urobilinogen 0.2 POC U Leukocyte Esteras Negative (Negative) POC Urine HCG, Qual Negative (Negative) Discharge Plan Discharge Clinical Impression: Acute nausea with nonbilious vomiting Patient Disposition: Home Condition: Stable Instructions: Antibiotic Form, Acute Nausea and Vomiting (ED) Additional Instructions: Take prescription medications only as prescribed-ondansetron Increase fluids and stay well hydrated May take Tylenol or motrin as directed on bottle for pain/fever BRAT diet for diarrhea Clear liquids x 24 hours then advance as tolerated for nausea/vomiting Go to the ED if you develop a worsening in your condition- high fever not controlled by Tylenol or Motrin, dehydration, weakness, lethargy, shortness of breath, or chest pain. Follow up with your PCP in 3-5 days if symptoms persist. Patient Language: Bangladeshi Prescriptions: New ondansetron 8 mg tablet,disintegrating 8 mg PO Q8H PRN (Reason: nausea and vomiting) 5 Days Qty: 15 0RF No Action levothyroxine 100 mcg tablet cholecalciferol (vitamin D3) 10 mcg (400 unit) Tablet 10 mcg PO DAILY escitalopram oxalate 10 mg tablet Fish Oil Capsule 1,000 mg PO DAILY Classic 28 mg iron- 800 mcg Tablet ondansetron 4 mg tablet,disintegrating 4 mg PO Q6H PRN (Reason: nausea and vomiting) Qty: 30 0RF Follow-up/Referrals: Johann,Raven Mcgowan MD [Primary Care Provider, Unknown] Time of Disposition: 18:17 Quality NIHSS Nursing Documentation ED NIHSS nursing documentation: reviewed/agree
[2025-07-09 17:45] VITALS: BP 120/62; PULSE 96; RESP 20; TEMP 36.4; O2SAT 99
[2025-07-09 18:09] LABS: BEDSIDEPREGUCG Negative (Negative)
[2025-07-09 18:21] LABS: EDUAAPPEAR Clear; EDUABILI Negative (Negative); EDUABLOOD Trace (Negative); EDUACOLOR1 Yellow; EDUAGLUCOSE Negative (Negative); EDUAKETONE Negative (Negative); EDUALEUKO Negative (Negative); EDUANITRATE Negative (Negative); EDUAPH 6.5; EDUAPROTEIN Negative (Negative); EDUASPGRAVITY 1.015; EDUAUROBILI 0.2
[2025-07-09] MEDS: ONDANSETRON HCL ODT 4 MG TABLET 8 MG SUBLINGUAL (18:22)
== END 2025-07-09 18:28 | disposition home or self-care (01) ==
PROVIDERS: Emergency Provider Nurse Practitioner Family; PCP Student in an Organized Health Care Education/Training Program
DX: R11.2 Nausea with vomiting, unspecified (principal)
CPT/HCPCS: 81003; 81025; 99213; A9270; G0463